=== PATIENT | female | born 1955 | race Two or more races ===

== ENCOUNTER 2023-07-23 09:51 | Outpatient (AMB) | payer MEDICARE, SELFPAY ==
--- NOTE | 2023-07-23 10:16 | A.OFFVIS_ITS ---
Intake Vital Signs 07/23/23 10:19 Weight 121 lb 11.123 oz BP 100/68 Blood Pressure Location Lt brachial Position Sitting Pulse 68 Pulse Source Pulse Oximeter Temp 97.2 F Temp Source Skin Pulse Oximetry (%) 99 Oxygen Delivery Method Room Air Intake Visit Reasons: SLE Intake Note: New patient here for SLE. Former/Current patient of [facility] c/o back, thaddeus knees, left thumb, thaddeus hand pains [employer] Required: No Accompanied by: Self / Same As Patient Allergies penicillin G Allergy (Severe, Verified 07/23/23 10:27) Rash latex Allergy (Intermediate, Verified 07/23/23 10:27) Rash metronidazole Allergy (Intermediate, Verified 07/23/23 10:27) Rash amoxicillin Allergy (Verified 07/23/23 10:27) Unknown meloxicam Allergy (Verified 07/23/23 10:27) Rash Medication List - Last Reconciled 07/23/23 by Stone Trujillo MD cholecalciferol (vitamin D3) 25 mcg PO DAILY cyclobenzaprine 5 - 10 mg PO BEDTIME PRN docosahexaenoic acid-epa 120-180 mg (Fish Oil) 1 cap PO DAILY duloxetine (Cymbalta) 60 mg PO DAILY hydroxychloroquine (Plaquenil) 300 mg PO DAILY lorazepam 1 mg PO BID PRN pantoprazole 40 mg PO DAILY raloxifene 60 mg PO DAILY HPI HPI Comments History of Present Illness Details The patient presents for evaluation of lupus and fibromyalgia. 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 This for the most part included Dr. Sanchez but more recently she saw Dr. Kitchen. She was concerned about her care and wanted another opinion. As far as I can tell she presented in around 2004 with pleuritis, skin rash, and arthritis. She was treated with prednisone briefly and then put on hydroxychloroquine. It does not sound like she had much of any other flare-ups of her disease in the subsequent 20 years or so. She is currently on 300 mg daily hydroxychloroquine, it previously had been at 200 mg twice a day. She also takes cyclobenzaprine at n ight, duloxetine during the day, and for anxiety occasional lorazepam. She had been on some gabapentin in the past but did not think it helped her much so she stopped it. Areas of pain recently is included the lower back, knees, fingers, in the thumbs. She is on vitamin-D and raloxifene she says for osteoporosis. There is no history of any fractures that she can recall. [facility] Medical History (Updated 07/23/23 @ 17:46 by Stone Trujillo MD) Abnormality on bone densitometry Clostridium difficile colitis Dense breast Depression Inflammatory arthritis Pleurisy Raynauds disease SLE (systemic lupus erythematosus) Surgical History Hx of tubal ligation Family History (Updated 07/23/23 @ 10:32 by ELICIA Reyes) Other Arthritis Heart disease Social History (Updated 07/23/23 @ 10:33 by ELICIA Reyes) Household Members: None Household Members Other:: cats Alcohol intake: current Alcohol intake frequency: holidays/special occasions only Patient Tobacco Use Status: Former Tobacco user Quit Date: 40 years ago Current occupational status: retired Female Reproductive History Menstrual Total pregnancies: 2 Review of Systems Const Details: Low energy at times. Negative for appetite change, weight change, fever, chills, malaise Eyes Details: Occasional headaches. Negative for vision change, dry eyes, and dizziness ENT Details: Negative for hearing change, tinnitus, oral ulcer, nose bleeds and oral dryness. Card Details: Negative chest pain, edema and syncope Resp Details: Negative for SOB, cough and wheezing GI Details: Occasional heartburn. Negative nausea, abdominal pain, bowel changes, diarrhea, constipation and bloody stool. Details: Negative for dysuria, hematuria, nocturia, decreased force/flow and genital discharge Skin/Breast Details: Occasional Raynaud's symptoms. Negative for itching, rash, hives, sun sensitivity, and skin cancer Neuro Details: Negative for epilepsy, palsy, stroke, changes in speech, tingling and weakness Psych Details: Distant history of panic attacks. Depression better on the duloxetine. Endo Details: Negative for polyuria and polydypsia Tyrone/Lymph Details: Negative for excessive bruising or bleeding. Physical Exam Vital Signs: Last Vital Signs Temp 97.2 F 07/23/23 10:19 Pulse 68 07/23/23 10:19 BP 100/68 07/23/23 10:19 Pulse Ox 99 07/23/23 10:19 Oxygen Delivery Method Room Air 07/23/23 10:19 APPEARANCE: Patient in no acute distress EYES no redness, pupils equal and reactive to light, eyelids normal EARS: External ear normal, canal clear and tympanic membrane normal. NOSE/SINUS: Airflow through both nares, no nasal discharge, no bleeding THROAT: Oral mucosa moist, no ulcerations NECK: No thyromegaly or masses, no adenopathy, trachea midline. HEART: Regulrar rhythm, S1-S2 heard, no murmurs, rubs or gallops. LUNG: Clear to percussion and auscultation ABD: Normal bowel sounds, no organomegaly, masses or tenderness. EXTREMITIES: No edema, no calf tenderness, normal peripheral pulses. NEURO: Oriented and alert x3. No focal weakness. Reflexes symmetric. Gait normal. SKIN: No inflammatory or neoplastic lesions. Normal color and turgor JOINT EXAM:.?? Cervical Spine:.? Full range of motion without pain; no tenderness. Thoracic Spine:.? No scoliosis.? No tenderness on palpation. Lumbar Spine:.? Alignment normal.? Mild discomfort with extremes of normal range of motion; no tenderness. Chest Wall:.? No tenderness, swelling, increased warmth or erythema. Hands: Right: There is mild bony enlargement and tenderness at the base of the thumb. There is some minimal nontender bony enlargement at the thumb IP in all the PIP joints. Similarly there is some slight bony enlargement without tenderness at the 2nd and 5th DIP joints. There is no thenar atrophy, soft tissue swelling, or sensory loss. Left: Slight tenderness without swelling at the base of the thumb. Nontender bony enlargement at the 2nd through 4th PIP joints. No areas of soft tissue swelling, redness, warmth flexor tendon triggering, thenar atrophy or sensory loss. Wrists:.? Normal pain-free range of motion without tenderness, swelling, increased warmth or erythema. Elbows:. Normal pain-free range of motion without tenderness, swelling, increased warmth or erythema. Shoulders:.?? Full range of motion without pain. No tenderness, weakness, swelling, increased warmth or erythema. Hips:.? Full range of motion without pain. Hip bursa:.? No tenderness. Knees:.?? Normal pain-free range of motion with mild patellofemoral crepitus. There is slight medial tenderness on the left but not the right. The knees have no effusions, soft tissue swelling, increased warmth or erythema.? Ankles:.? Normal pain-free range of motion without tenderness, swelling, increased warmth or erythema. Feet: Left: Mild 1st MTP bony enlargement and hallux valgus deformity but no tenderness. Elsewhere no tenderness or soft tissue swelling. Right: Minimal bony enlargement at the 1st MTP joint without tenderness. The other joints have normal pain-free range of motion without tenderness, swelling, increased warmth or erythema. Tender points:.? Mild tenderness to digital palpation at the trapezius, knees, greater trochanter and area bilaterally. ? Results Reviewed Results Reviewed: Lab work from [facility]: February 2023: Hemoglobin 12.7, white count 4.7, platelet count 240,000, creatinine 0.29 June 2022: C3 and C4 normal, anti DNA negative Assessment & Plan Assessment & Plan (1) Osteopenia after menopause: Code(s): M85.80 - Other specified disorders of bone density and structure, unspecified site; Z78.0 - Asymptomatic menopausal state (2) Raynauds disease: Code(s): I73.00 - Raynaud's syndrome without gangrene (3) SLE (systemic lupus erythematosus): Code(s): M32.9 - Systemic lupus erythematosus, unspecified (4) Osteoarthritis, hand: Code(s): M19.049 - Primary osteoarthritis, unspecified hand Plan SLE with the no apparent symptoms right now of active disease. She has some back pain and hand pain related to osteoarthritis. Markers for inflammatory disease and lupus activity were negative within the last year. I told her for now I did not see much active sign of SLE. She could continue with the hydroxychloroquine as above as she has been getting eye exams monitoring its use. She may have some element of fibromyalgia as well. I do not think that needs to be separately addressed for now. For pain that is bothersome enough [id number] acetaminophen up to 1 g t.i.d. is recommended. 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 Coding Level of Care Code New Pt Level 3 (17201) Diagnoses Osteopenia after menopause M85.80; Z78.0 Raynauds disease I73.00 SLE (systemic lupus erythematosus) M32.9 Osteoarthritis, hand M19.049
[2023-07-23 10:19] VITALS: BP 100/68; PULSE 68; TEMP 36.2; O2SAT 99
== END 2023-07-23 11:06 | disposition home or self-care (01) ==
PROVIDERS: PCP Internal Medicine Rheumatology; Visit Provider Internal Medicine Rheumatology
DX: M85.80 Other specified disorders of bone density and structure, unspecified site (principal); Z78.0 Asymptomatic menopausal state; I73.00 Raynaud's syndrome without gangrene; M32.9 Systemic lupus erythematosus, unspecified; M19.049 Primary osteoarthritis, unspecified hand
CPT/HCPCS: 99203

== ENCOUNTER → 2023-07-23 09:51 | Outpatient (BNVA) | payer MEDICARE, SELFPAY | PROVIDERS: Visit Provider Internal Medicine Rheumatology | DX: M32.9 Systemic lupus erythematosus, unspecified (principal); M85.80 Other specified disorders of bone density and structure, unspecified site; Z78.0 Asymptomatic menopausal state; I73.00 Raynaud's syndrome without gangrene; M19.049 Primary osteoarthritis, unspecified hand | CPT/HCPCS: 99202 ==